=== PATIENT | female | born 1995 | race Two or more races ===

== ENCOUNTER 2023-04-13 02:52 | Emergency (ER) | payer OTHER ==
[~2023-04-13] VITALS: Ht 167.6 cm; Wt 59.0 kg
== END 2023-04-13 04:49 | disposition home or self-care (01) ==
LOC: ER 02:52
DX: M62.830 Muscle spasm of back (principal); Z91.013 Allergy to seafood

== ENCOUNTER → 2023-06-03 | Emergency (ER) | payer OTHER ==
[~2023-06-03] VITALS: Ht 167.6 cm; Wt 61.2 kg
== END | disposition home or self-care (01) ==
LOC: ER 01:57
DX: M62.830 Muscle spasm of back (principal); Z91.013 Allergy to seafood